=== PATIENT | male | born 1940 | race Caucasian/White ===

== ENCOUNTER 2016-08-20 10:24 | Emergency (ER) | payer MEDICARE ==
[2016-08-20] MEDS ORDERED: 0.9 % SODIUM CHLORIDE 1,000 ML BAG IV ONE (10:42)
--- NOTE | 2016-08-20 10:43 | Emergency Department Record ---
History of Present Illness - General Chief complaint: GI Bleed Stated complaint: BLOODY STOOL Time Seen by Provider: 08/20/16 10:37 Source: Patient, Family Mode of Arrival: Ambulatory Limitations: No limitations - History of Present Illness Initial comments: 75 yo male presents with a few days of blood in the stools. He has a past medical history of GI bleeding. On 04/15/16 he had an EGD that demonstrated antral gastritis. On 02/27/15 he had a colonoscopy that demonstrated sigmoid diverticulosis. (Dr Stephenson). He has a cardiac stent and takes Effient. The stools since Tuesday or Tuesday have been dark. No bright red blood. No fevers. No diarrhea. He has 3-5 stools per day. No nausea or vomiting. He has unchanged chronic abdominal pain for 9 years. He had recent urostomy surgery and denies any concerns or complications from that. MD complaint: Melena Onset/Timin -: Days(s) Consistency: Intermittent Improves with: None Worsens with: None Context: History of GI bleed, Blood thinners Associated Symptoms: Denies other symptoms Treatments Prior to Arrival: None - Related Data Home Medications Medication Instructions Recorded Confirmed Last Taken Atorvastatin Calcium [Lipitor] 40 mg PO DAILY 04/28/14 08/20/16 04/29/14 Carvedilol [Coreg] 3.125 mg PO BID 04/28/14 08/20/16 04/29/14 Ezetimibe [Zetia] 10 mg PO DAILY 04/28/14 08/20/16 04/29/14 Insulin Detemir [Levemir] 7 unit SQ QHS 04/28/14 08/20/16 04/28/14 Insulin Detemir [Levemir] 27 unit SQ DAILY 04/28/14 08/20/16 04/28/14 Linagliptin [Tradjenta] 5 mg PO DAILY 04/28/14 08/20/16 04/29/14 Pioglitazone HCl [Actos] 30 mg PO DAILY 04/28/14 08/20/16 04/29/14 Duloxetine HCl [Cymbalta] 30 mg PO DAILY 04/30/14 08/20/16 04/29/14 Aspirin [Aspirin EC] 81 mg PO DAILY 08/20/16 08/20/16 Unknown Bifidobacterium Infantis [Align] 4 mg PO DAILY 08/20/16 08/20/16 Unknown Cholecalciferol (Vitamin D3) 10,000 unit PO WEEKLY 08/20/16 08/20/16 Unknown [Vitamin D3] L.acidoph & KrystalB.lactis 1 each PO BID 08/20/16 08/20/16 Unknown [Probiotic] Lansoprazole [Prevacid] 30 mg PO DAILY 08/20/16 08/20/16 Unknown Prasugrel HCl [Effient] 10 mg PO DAILY 08/20/16 08/20/16 Unknown Previous Rx's Medication Instructions Recorded Hydrocodone/Acetaminophen [[place] 1 each PO Q6HR PRN #20 tablet 04/30/14 7.5-325 Tablet] Allergies Allergy/AdvReac Type Severity Reaction Status Date / Time ioversol [IOVERSOL] Allergy Unknown GIVE Verified 04/30/14 04:26 PRE-TREATMENT hydromorphone HCl Allergy VOMITING Verified 08/20/16 10:37 [From Dilaudid] Iodinated Contrast Media - Allergy HIVES Verified 04/28/14 03:50 Oral and [Iodinated Contrast Media - IV Dye] morphine Allergy ALTERED Verified 04/28/14 03:50 MENTAL STATUS Travel Screening - Travel/Exposure Within Last 30 Days Have you traveled within the last 30 days?: No - Travel Symptoms Symptom Screening: None Review of Systems Constitutional: Denies: Chills, Fever, Malaise, Weakness Eyes: Denies: Eye discharge ENT: Denies: Congestion, Ear pain, Epistaxis, Throat pain Respiratory: Denies: Cough Cardiovascular: Denies: Chest pain, Palpitations, Syncope Endocrine: Denies: Fatigue Gastrointestinal: Reports: Abdominal pain, Melena. Denies: Constipation, Diarrhea, Hematemesis, Hematochezia, Nausea, Vomiting Genitourinary: Denies: Dysuria, Frequency, Hematuria Musculoskeletal: Denies: Arthralgia, Back pain, Myalgia Skin: Denies: Bruising, Change in color, Rash Neurological: Denies: Confusion, Headache Psychiatric: Denies: Anxiety Hematological/Lymphatic: Denies: Blood Clots, Easy bleeding, Easy bruising, Swollen glands Past Medical History - SOCIAL HISTORY Smoking Status: Former smoker Alcohol Use: None Drug Use: None - RESPIRATORY Hx Respiratory Disorders: Yes Hx Pneumonia: Yes (2012) - CARDIOVASCULAR Hx Cardio Disorders: Yes Hx CHF: Yes Hx Hypertension: Yes Hx Irregular Heartbeat: Yes (hx of afib 2011) Comment:: high cholesterol - NEURO Hx Neuro Disorders: No - GI Hx GI Disorders: Yes Hx Abdominal Pain: Yes (chronic unexplained abdominal) Hx Wt Loss/Wt Gain: Yes (down 20 lbs since 04/2014) Comment:: h pylori - Hx Genitourinary Disorders: Yes Hx Bladder Problem: Yes (bladder cancer, urostomy) Hx Prostate Problems: Yes (removed 2006) Hx UTI: Yes (hx) - ENDOCRINE Hx Endocrine Disorders: Yes Hx Diabetes: Yes - MUSCULOSKELETAL Hx Musculoskeletal Disorders: Yes - PSYCH Hx Psych Problems: Yes Hx Anxiety: Yes Hx Depression: Yes - HEMATOLOGY/ONCOLOGY Hx Hematology/Oncology Disorders: Yes Hx Cancer: Yes (bladder 2006) Hx Chemotherapy: No Hx Radiation Therapy: No Family Medical History Any Significant Family History?: Yes Hx Cancer: Father *Cancer Comment: melanoma Hx Diabetes: Mother Hx Heart Disease: Father, Mother Hx HTN: Father, Mother Hx Stroke: Father, Mother Physical Exam - General General Appearance: Alert, Oriented x3, Cooperative, No acute distress Limitations: No limitations - Head Head exam: Normal inspection - Eye Eye exam: Normal appearance, PERRL. negative: Conjunctival injection, Periorbital swelling - ENT ENT exam: Normal exam Ear exam: Normal external inspection Mouth exam: Normal external inspection Teeth exam: Normal inspection - Neck Neck exam: Normal inspection, Full ROM. negative: Tenderness - Respiratory Respiratory exam: Normal lung sounds bilaterally. negative: Respiratory distress - Cardiovascular Cardiovascular Exam: Regular rate, Normal rhythm, Normal heart sounds - GI/Abdominal GI/Abdominal exam: Soft. negative: Distended, Guarding, Rebound, Tenderness - Rectal Rectal exam: Black stool, Heme (+) stool, Normal inspection. negative: Bloody stool, Decreased rectal tone, Fecal impaction, Hemorrhoids - exam: Deferred - Extremities Extremities exam: Normal inspection, Full ROM, Normal capillary refill. negative: Tenderness - Back Back exam: Reports: Normal inspection, Full ROM. Denies: Muscle spasm, Rash noted, Tenderness - Neurological Neurological exam: Alert, Normal gait, Oriented X3 - Psychiatric Psychiatric exam: Normal affect, Normal mood - Skin Skin exam: Dry, Intact, Normal color, Warm. negative: Cyanosis, Diaphoretic, Erythema, Mottled Course Vital Signs 08/20/16 10:29 Temperature 98.7 F Pulse Rate 117 H Respiratory 20 Rate Blood Pressure 129/94 Pulse Ox 97 - Reevaluation(s) Reevaluation #1: The labs were reviewed Hgb is 13.3 improved from prior hgb of 12.2 in January of 2016. CR is 1.3 improved from the prior of 1.4 08/20/16 11:45 08/20/16 11:46 Reevaluation #2: HR 95. Patient formed of the results. 08/20/16 11:47 Reevaluation #3: I SW Dr Gonzales. We discussed the symptoms, examination and results. The patient is stable, no signs of active significant bleeding with an improved hgb. Dr Gonzales recommends holding the aspirin at this time. The patient will be recheck in the office or ED in the next 2-3 days with CBC. If the stools increase the patient is to return immediately to the ER over the weekend. 08/20/16 12:00 Medical Decision Making - Lab Data Result diagrams: 08/20/16 11:05 08/20/16 11:05 Disposition Disposition: Discharge Clinical Impression: Melena Disposition: Home, Self-Care Condition: (1) Good Instructions: Gastrointestinal Bleeding (ED) Additional Instructions: Hold the aspirin until directed by Dr Gonzales Return over the weekend if you have any increase in stools or any red blood Follow up on Tuesday to recheck the blood count or return to the ER for a recheck. Forms: Patient Portal Access Time of Disposition: 12:04
[2016-08-20 11:15] LABS: BASO % 1.5 % (0-6); EOS % 2.3 % (0-6); GRAN % 67.5 % (47-80); HEMATOCRIT 41.3 % (42.0-52.0); HEMOGLOBIN 13.3 gm/dl (14.0-18.0); LYMPH % 21.8 % (16-45); MEAN CELL VOLUME 89.2 fl (81-97); MEAN CORPUSCULAR HEMOGLOBIN 28.7 pg (27-33); MEAN CORPUSCULAR HGB CONC 32.2 g/dl (32-36); MEAN PLATELET VOLUME 10.3 fl (7.4-10.4); MONO % 6.9 % (0-9); PLATELET COUNT 305 K/uL (130-400); RED BLOOD COUNT 4.63 M/uL (4.40-5.70); RED CELL DISTRIBUTION WIDTH 14.2 % (11.5-14.5); WHITE BLOOD COUNT W/O DIFF 10.4 K/uL (4.2-12.2)
[2016-08-20 11:29] LABS: ALBUMIN 4.4 gm/dL (3.5-5.0); ANION GAP 10.3 (7-16); BILIRUBIN,TOTAL 0.62 mg/dL (0.2-1.3); CARBON DIOXIDE 27.7 mmol/L (22-30); CREATININE 1.3 mg/dL (0.66-1.25); INR 0.98; PARTIAL THROMBOPLASTIN TIME 23.3 SECONDS (24.5-39.1); PROTHROMBIN TIME (PATIENT) 11.1 SECONDS (9.5-12.1); TOTAL PROTEIN 7.2 gm/dL (6.3-8.2)
[2016-08-20 11:59] LABS: ABO GROUP A; ANTIBODY SCREEN NEGATIVE (NEGATIVE); RH TYPE POSITIVE
== END 2016-08-20 12:26 | disposition home or self-care (01) ==
LOC: ER 10:24
DX: K92.1 Melena (principal)
CPT/HCPCS: 80048; 80076; 85025; 85610; 85730; 86850; 86900; 86901; 96360; 99284; J7030

== ENCOUNTER 2017-11-05 10:37 | Emergency (ER) | payer MEDICARE ==
[2017-11-05 11:25] LABS: URINE APPEARANCE CLOUDY; URINE BILIRUBIN NEGATIVE (NEGATIVE); URINE BLOOD LARGE (NEGATIVE); URINE COLOR YELLOW; URINE GLUCOSE (UA) NEGATIVE (NEGATIVE); URINE KETONE NEGATIVE (NEGATIVE); URINE LEUKOCYTE ESTERASE LARGE (NEGATIVE); URINE NITRITE POSITIVE (NEGATIVE); URINE UROBILINOGEN 0.2 E.U./dL (0.20 - 1.00)
[2017-11-05 11:26] LABS: BASO % 0.7 % (0-6); EOS % 1.5 % (0-6); GRAN % 70.2 % (47-80); HEMATOCRIT 37.7 % (42.0-52.0); HEMOGLOBIN 12.1 gm/dl (14.0-18.0); MEAN CELL VOLUME 91.7 fl (81-97); MEAN CORPUSCULAR HEMOGLOBIN 29.4 pg (27-33); MEAN CORPUSCULAR HGB CONC 32.1 g/dl (32-36); MONO % 11.6 % (0-9); PLATELET COUNT 422 K/uL (130-400); RED BLOOD COUNT 4.11 M/uL (4.40-5.70); RED CELL DISTRIBUTION WIDTH 14.8 % (11.5-14.5); WHITE BLOOD COUNT W/O DIFF 12.7 K/uL (4.2-12.2)
[2017-11-05 11:31] LABS: URINE RBC >50 (NONE SEEN)
--- NOTE | 2017-11-05 11:31 | Emergency Department Record ---
History of Present Illness - General Chief Complaint: Fever Stated Complaint: 102 FEVER JUST HAD SURGERY Time Seen by Provider: 11/05/17 10:59 Source: Patient, Family Mode of Arrival: Ambulatory Limitations: No limitations - History of Present Illness Initial Comments: pt had surgery 3 wks ago to have a urostomy tube replaced and smbowell resection. this morning he had a temp. and noted that he had yellow drainage coming from the drainage tube site. MD Complaint: Fever Onset/Timin -: Hour(s) Maximum Temperature: 102 F Context: Recent procedure Associated Symptoms: Chills Treatments Prior to Arrival: Acetaminophen - Related Data Home Medications Medication Instructions Recorded Confirmed Last Taken Amlodipine Besylate [Norvasc] 5 mg PO DAILY 11/05/17 11/05/17 11/04/17 Nitrofurantoin Macrocrystal 25 mg PO QHS 11/05/17 11/05/17 11/04/17 [Nitrofurantoin] Sotalol HCl [Sotalol] 80 mg PO 11/05/17 11/05/17 11/04/17 Allergies Allergy/AdvReac Type Severity Reaction Status Date / Time ioversol [IOVERSOL] Allergy Unknown GIVE Verified 11/05/17 10:52 PRE-TREATMENT hydromorphone HCl Allergy VOMITING Verified 11/05/17 10:52 [From Dilaudid] Iodinated Contrast- Oral and Allergy HIVES Verified 11/05/17 10:52 IV Dye [Iodinated Contrast Media - IV Dye] morphine Allergy ALTERED Verified 11/05/17 10:52 MENTAL STATUS Travel Screening - Travel/Exposure Within Last 30 Days Have you traveled within the last 30 days?: No - Travel/Exposure Within Last Year Have you traveled outside the [place] in the last year?: No - Additonal Travel Details Have you been exposed to anyone with a communicable illness?: No - Travel Symptoms Symptom Screening: None Review of Systems Reviewed: No additional complaints except as noted below Constitutional: Reports: As per HPI. Denies: Chills, Fever, Malaise, Night sweats, Weakness, Weight change Eyes: Reports: As per HPI. Denies: Eye discharge, Eye pain, Photophobia, Vision change ENT: Reports: As per HPI. Denies: Congestion, Dental pain, Ear pain, Epistaxis , Hearing loss, Throat pain Respiratory: Reports: As per HPI. Denies: Cough, Dyspnea, Hemoptysis, Stridor, Wheezes Cardiovascular: Reports: As per HPI. Denies: Arrhythmia, Chest pain, Dyspnea on exertion, Edema, Murmurs, Orthopnea, Palpitations, Paroxysmal nocturnal dyspnea, Rheumatic Fever, Syncope Endocrine: Reports: As per HPI. Denies: Fatigue, Heat or cold intolerance, Polydipsia, Polyuria Gastrointestinal: Reports: As per HPI. Denies: Abdominal pain, Constipation, Diarrhea, Hematemesis, Hematochezia, Melena, Nausea, Vomiting Genitourinary: Reports: As per HPI. Denies: Dysuria, Frequency, Hematuria, Incontinence, Retention, Testicular pain, Testicular mass, Urgency Musculoskeletal: Reports: As per HPI. Denies: Arthralgia, Back pain, Gout, Joint swelling, Myalgia, Neck pain Skin: Reports: As per HPI. Denies: Bruising, Change in color, Change in hair/ nails, Lesions, Pruritus, Rash Neurological: Reports: As per HPI. Denies: Abnormal gait, Confusion, Headache, Numbness, Paresthesias, Seizure, Tingling, Tremors, Vertigo, Weakness Psychiatric: Reports: As per HPI. Denies: Anxiety, Auditory hallucinations, Depression, Homicidal thoughts, Suicidal thoughts, Visual hallucinations Hematological/Lymphatic: Reports: As per HPI. Denies: Anemia, Blood Clots, Easy bleeding, Easy bruising, Swollen glands Past Medical History - SOCIAL HISTORY Smoking Status: Former smoker Alcohol Use: None Drug Use: None - RESPIRATORY Hx Respiratory Disorders: Yes Hx Pneumonia: Yes (hx 2012) - CARDIOVASCULAR Hx Cardio Disorders: Yes Hx CHF: Yes Hx Hypertension: Yes Hx Irregular Heartbeat: Yes (hx of afib 2011) Comment:: high cholesterol - NEURO Hx Neuro Disorders: No - GI Hx GI Disorders: Yes Hx Abdominal Pain: Yes (chronic unexplained abdominal) Hx Wt Loss/Wt Gain: Yes (down 20 lbs since 04/2014) Comment:: h pylori - Hx Genitourinary Disorders: Yes Hx Bladder Problem: Yes (bladder cancer, urostomy) Hx Prostate Problems: Yes (removed 2006) Hx UTI: Yes (hx) - ENDOCRINE Hx Endocrine Disorders: Yes Hx Diabetes: Yes - MUSCULOSKELETAL Hx Musculoskeletal Disorders: Yes - PSYCH Hx Psych Problems: Yes Hx Anxiety: Yes Hx Depression: Yes - HEMATOLOGY/ONCOLOGY Hx Hematology/Oncology Disorders: Yes Hx Cancer: Yes (bladder 2007) Hx Chemotherapy: No Hx Radiation Therapy: No Family Medical History Any Significant Family History?: No Hx Cancer: Father *Cancer Comment: melanoma Hx Diabetes: Mother Hx Heart Disease: Father, Mother Hx HTN: Father, Mother Hx Stroke: Father, Mother Physical Exam - General General Appearance: Alert, Oriented x3, Cooperative, Mild distress - Head Head exam: Normal inspection - Eye Eye exam: Normal appearance, PERRL, EOMI Pupils: Normal accommodation - ENT ENT exam: Normal exam, Mucous membranes moist, Normal external ear exam, Normal orophraynx Ear exam: Normal external inspection. negative: External canal tenderness Nasal Exam: Normal inspection. negative: Discharge, Sinus tenderness Mouth exam: Normal external inspection, Tongue normal Teeth exam: Normal inspection. negative: Dental caries Throat exam: Normal inspection. negative: Tonsillar erythema, Tonsillar exudate - Neck Neck exam: Normal inspection, Full ROM. negative: Tenderness - Respiratory Respiratory exam: Normal lung sounds bilaterally. negative: Respiratory distress - Cardiovascular Cardiovascular Exam: Regular rate, Normal rhythm, Normal heart sounds - GI/Abdominal GI/Abdominal exam: Soft, Normal bowel sounds, Tenderness, Other (well healing incision w no erythema or evidence of infection) - Rectal Rectal exam: Deferred - exam: Deferred - Extremities Extremities exam: Normal inspection, Full ROM, Normal capillary refill. negative: Tenderness - Back Back exam: Reports: Normal inspection, Full ROM. Denies: Muscle spasm, Rash noted, Tenderness - Neurological Neurological exam: Alert, CN II-XII intact, Normal gait, Oriented X3 - Psychiatric Psychiatric exam: Normal affect, Normal mood - Skin Skin exam: Dry, Intact, Normal color, Warm Course Vital Signs 11/05/17 10:40 Temperature 98.9 F Pulse Rate 84 Respiratory 16 Rate Blood Pressure 113/64 Pulse Ox 96 - Reevaluation(s) Reevaluation #1: 11/05/17 14:15 pt did well entire stay Medical Decision Making - Lab Data Result diagrams: 11/05/17 11:20 11/05/17 11:20 Disposition Disposition: Transfer Clinical Impression: Pyelonephritis Disposition: Acute Care Hospital Transfer Transfer To: of Reason For Transfer: pts urologist Accepting Physician: yomi baugh, Time Discussed w/Accepting Physician: 14:10 Condition: (1) Good Forms: Patient Portal Access Quality - Quality Measures Quality Measures: N/A - Blood Pressure Screening Does Patient Have Any of the Following: No Blood Pressure Classification: Normal BP Reading Systolic Measurement: 113 Diastolic Measurement: 64 Screening for High Blood Pressure: < Normal BP, F/U Not Required > [G8725]
[2017-11-05 11:32] LABS: URINE BACTERIA 2+; URINE EPITHELIAL CELLS NONE SEEN (FEW)
[2017-11-05 11:40] LABS: BLOOD UREA NITROGEN 14 mg/dL (8-23); EST GLOMERULAR FILTRATION RATE > 60 mL/min; TOTAL PROTEIN 6.5 g/dL (6.6-8.7)
[2017-11-05 11:42] LABS: GLUCOSE,RANDOM 138 mg/dL (74-109)
[2017-11-05 11:45] LABS: ALBUMIN 3.2 g/dL (4.0-5.0); ALKALINE PHOSPHATASE 303 U/L (40-129); ALT/SGPT 32 U/L (<41); AST/SGOT 40 U/L (10.0-50.0)
[2017-11-05 12:00] LABS: ERYTHROCYTE SEDIMENTATION RATE 55 mm/hr (0-20)
[2017-11-05] MEDS: PIPERACILLIN SODIUM/TAZOBACTAM 3.375 GM in 0.9 % SODIUM CHLORIDE 100ML 100 ML IVPB ONE (14:00)
--- NOTE | 2017-11-05 22:57 | CT SCAN REPORT ---
EXAM: CT SCAN ABDOMEN/PELVIS WO CONTRAST HISTORY: FEVER. RECENT OSTOMY SURGERY. PARTIAL SMALL BOWEL REMOVAL. TECHNIQUE: Routine noncontrast CT images of the abdomen and pelvis were obtained. FINDINGS: Lung bases demonstrated bibasilar scarring and atelectasis. Liver, gallbladder, pancreas, spleen, and adrenals have a normal noncontrast appearance. There are splenic granulomatous calcifications. Bilateral ureteral stents are in place, which extend into an ileal conduit bladder. The proximal left ureteral stent terminates in the proximal left ureter rather than in the renal pelvis. There is mild to moderate hydronephrosis. There is colonic diverticulosis without evidence for diverticulitis. Bowel is normal in caliber. Bladder is surgically absent. There is mild ascites. Previous posterior lumbar interbody fusion L3-4. Atherosclerotic calcifications. 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 No abdominal or pelvic lymphadenopathy. Postsurgical changes in the anterior abdominal wall. [place] are noted. IMPRESSION: 1. THERE HAS BEEN CYSTECTOMY AND ILEAL CONDUIT BLADDER CREATION. BILATERAL URETERAL STENTS ARE PRESENT EXTENDING INTO THE ILEAL CONDUIT. MILD TO MODERATE BILATERAL HYDRONEPHROSIS. 2. MILD NONSPECIFIC FREE FLUID. 3. COLONIC DIVERTICULOSIS. JOB NUMBER: [id number] [facility]
--- NOTE | 2017-11-05 23:01 | RADIOLOGY REPORT ---
EXAM: CHEST 2 VIEWS HISTORY: FEVER. PREVIOUS SURGERY. TECHNIQUE: Chest, two view. COMPARISON: None. FINDINGS: The heart is not enlarged. Aortic atherosclerosis and tortuosity. Interstitial prominence within the lungs with right apical pleural thickening. subtle streaky densities within the right lung base, which could relate to atelectasis or developing infiltrate. No focal consolidation or pleural effusion. IMPRESSION: STREAKY DENSITIES RIGHT LUNG BASE, WHICH COULD RELATE TO ATELECTASIS OR DEVELOPING INFILTRATE. JOB NUMBER: [id number] [facility]
== END 2017-11-05 14:36 | disposition short-term general hospital (02) ==
LOC: ER 10:37
DX: N10 Acute pyelonephritis (principal); R50.81 Fever presenting with conditions classified elsewhere; E11.9 Type 2 diabetes mellitus without complications; I10 Essential (primary) hypertension; I50.9 Heart failure, unspecified; Z98.890 Other specified postprocedural states; Z87.891 Personal history of nicotine dependence
CPT/HCPCS: 71046; 74176; 80053; 81001; 85025; 85651; 96374; 99285; J2543

== ENCOUNTER 2018-02-25 22:18 | Emergency (ER) | payer MEDICARE ==
[2018-02-25] MEDS ORDERED: METHYLPREDNISOLONE PF 125MG/VIAL IVP ONE (22:29)
[2018-02-25] MEDS ORDERED: IPRATROPIUM/ALBUTEROL (0.5MG/3MG) NEB INH ONE (22:29)
[2018-02-25] MEDS ORDERED: ASPIRIN 81 MG CHEWABLE TABLET PO ONE (22:31)
--- NOTE | 2018-02-25 22:38 | Emergency Department Record ---
History of Present Illness - General Chief Complaint: Shortness of breath Stated Complaint: INOCENTE Time Seen by Provider: 02/25/18 22:27 Source: Patient, RN notes reviewed Mode of Arrival: Wheelchair - History of Present Illness Initial Comments: patient presented extremely SOB and hypoxic with pulse ox of 66% and wheezing in all lung harry and grunting respirations and pale and his has a history of COPD and stopped smoking 20 years ago and history of cardiomyopathy and he has a watchman. and on sotolol. states he has had atrial fibrillation and currently in NSR. Patient denies chest pain and he has been coughing for a week but he got much worse tonight. Patient denies home oxygen use. Special Education Associate is Dr Aleksandar MADERA. Patient has ileostomy for 20 years for bladder cancer and in October 2017 he had a revision of his ileostomy at [facility] with bowel surgery with adhesions. PMH CAD with two stents at [facility] two years ago. DM on insulin Treatments Prior to Arrival: None - Related Data Home Oxygen Therapy: No Home Medications Medication Instructions Recorded Confirmed Last Taken Albuterol Sulfate [Ventolin Hfa] 2 puff INH Q4H 02/25/18 02/25/18 Unknown Azelastine HCl 1 spray INH DAILY 02/25/18 02/25/18 Unknown Cephalexin 250 mg PO Q6H 02/25/18 02/25/18 Unknown Trazodone HCl 50 mg PO QHS 02/25/18 02/25/18 Unknown Allergies Allergy/AdvReac Type Severity Reaction Status Date / Time ioversol [IOVERSOL] Allergy Unknown GIVE Verified 11/05/17 10:52 PRE-TREATMENT hydromorphone HCl Allergy VOMITING Verified 11/05/17 10:52 [From Dilaudid] Iodinated Contrast- Oral and Allergy HIVES Verified 11/05/17 10:52 IV Dye [Iodinated Contrast Media - IV Dye] morphine Allergy ALTERED Verified 11/05/17 10:52 MENTAL STATUS Travel Screening - Travel/Exposure Within Last 30 Days Have you traveled within the last 30 days?: No - Travel Symptoms Symptom Screening: None Review of Systems Reviewed: No additional complaints except as noted below Constitutional: Reports: As per HPI. Denies: Chills, Fever, Malaise, Night sweats, Weakness, Weight change Eyes: Reports: As per HPI. Denies: Eye discharge, Eye pain, Photophobia, Vision change ENT: Reports: As per HPI. Denies: Congestion, Dental pain, Ear pain, Epistaxis , Hearing loss, Throat pain Respiratory: Reports: As per HPI, Cough, Dyspnea, Wheezes. Denies: Hemoptysis, Stridor Cardiovascular: Reports: As per HPI. Denies: Arrhythmia, Chest pain, Dyspnea on exertion, Edema, Murmurs, Orthopnea, Palpitations, Paroxysmal nocturnal dyspnea, Rheumatic Fever, Syncope Endocrine: Reports: As per HPI. Denies: Fatigue, Heat or cold intolerance, Polydipsia, Polyuria Gastrointestinal: Reports: As per HPI. Denies: Abdominal pain, Constipation, Diarrhea, Hematemesis, Hematochezia, Melena, Nausea, Vomiting Genitourinary: Reports: As per HPI. Denies: Dysuria, Frequency, Hematuria, Incontinence, Retention, Testicular pain, Testicular mass, Urgency Musculoskeletal: Reports: As per HPI. Denies: Arthralgia, Back pain, Gout, Joint swelling, Myalgia, Neck pain Skin: Reports: As per HPI. Denies: Bruising, Change in color, Change in hair/ nails, Lesions, Pruritus, Rash Neurological: Reports: As per HPI. Denies: Abnormal gait, Confusion, Headache, Numbness, Paresthesias, Seizure, Tingling, Tremors, Vertigo, Weakness Psychiatric: Reports: As per HPI. Denies: Anxiety, Auditory hallucinations, Depression, Homicidal thoughts, Suicidal thoughts, Visual hallucinations Hematological/Lymphatic: Reports: As per HPI. Denies: Anemia, Blood Clots, Easy bleeding, Easy bruising, Swollen glands Past Medical History - SOCIAL HISTORY Smoking Status: Former smoker Alcohol Use: None Drug Use: None - RESPIRATORY Hx Respiratory Disorders: Yes Hx Pneumonia: Yes (hx 2012) - CARDIOVASCULAR Hx Cardio Disorders: Yes Hx CHF: Yes Hx Hypertension: Yes Hx Irregular Heartbeat: Yes (hx of afib 2011) Comment:: high cholesterol - NEURO Hx Neuro Disorders: No - GI Hx GI Disorders: Yes Hx Abdominal Pain: Yes (chronic unexplained abdominal) Hx Wt Loss/Wt Gain: Yes (down 20 lbs since 04/2014) Comment:: h pylori - Hx Genitourinary Disorders: Yes Hx Bladder Problem: Yes (bladder cancer, urostomy) Hx Prostate Problems: Yes (removed 2006) Hx UTI: Yes (hx) - ENDOCRINE Hx Endocrine Disorders: Yes Hx Diabetes: Yes - MUSCULOSKELETAL Hx Musculoskeletal Disorders: Yes - PSYCH Hx Psych Problems: Yes Hx Anxiety: Yes Hx Depression: Yes - HEMATOLOGY/ONCOLOGY Hx Hematology/Oncology Disorders: Yes Hx Cancer: Yes (bladder 2007) Hx Chemotherapy: No Hx Radiation Therapy: No Family Medical History Any Significant Family History?: Yes Hx Cancer: Father *Cancer Comment: melanoma Hx Diabetes: Mother Hx Heart Disease: Father, Mother Hx HTN: Father, Mother Hx Stroke: Father, Mother Physical Exam - General General Appearance: Oriented x3, Severe distress (tetracting respirations and paradoxic) - Head Head exam: Normal inspection - Eye Eye exam: Normal appearance, PERRL Pupils: Normal accommodation - ENT ENT exam: Normal exam, Mucous membranes moist, Normal external ear exam, Normal orophraynx, TM's normal bilaterally Ear exam: Normal external inspection. negative: External canal tenderness Nasal Exam: Normal inspection. negative: Discharge, Sinus tenderness Mouth exam: Normal external inspection, Tongue normal Teeth exam: Normal inspection. negative: Dental caries Throat exam: Normal inspection. negative: Tonsillar erythema, Tonsillar exudate - Neck Neck exam: Normal inspection, Full ROM. negative: Tenderness - Respiratory Respiratory exam: Accessory muscle use, Decreased breath sounds, Wheezes. negative: Respiratory distress - Cardiovascular Cardiovascular Exam: Regular rate, Normal rhythm, Normal heart sounds - GI/Abdominal GI/Abdominal exam: Soft, Normal bowel sounds. negative: Tenderness - Rectal Rectal exam: Deferred - exam: Deferred - Extremities Extremities exam: Normal inspection, Full ROM, Normal capillary refill. negative: Tenderness - Back Back exam: Reports: Normal inspection, Full ROM. Denies: Muscle spasm, Rash noted, Tenderness - Neurological Neurological exam: Alert, Normal gait, Oriented X3, Reflexes normal - Psychiatric Psychiatric exam: Normal affect, Normal mood - Skin Skin exam: Dry, Intact, Normal color, Warm Course Vital Signs 02/25/18 02/25/18 22:21 22:29 Temperature 97.7 F Pulse Rate 130 H Pulse Rate [ 121 H Assistant Statistician ] Respiratory 30 H Rate Blood Pressure 245/148 Blood Pressure 217/125 [Left Arm] Pulse Ox 100 96 - Reevaluation(s) Reevaluation #1: Discussed case with Dr. Carty(Hospitalist) at [facility] and they excepted the patient. 02/26/18 00:36 02/26/18 00:51 Reevaluation #2: patient was on Bipap initially for 2 hours and he is doing much better and swithched him over to nasal canula 3 liters per minute and he is maintaining his pulse oxygen at 97 % and he diuresed 300 ml. 02/26/18 00:37 02/26/18 00:38 Reevaluation #3: abg PH 7.55, Po2 97, PCO2 26.5 on bipap room air oxygen. Patient recieved duoneb and albuterol2.5 mg initially. 02/26/18 00:42 02/26/18 00:43 Reevaluation #4: patient is allergic to contrast so didn't do the CTA of chest 02/26/18 00:45 Medical Decision Making - Data Complexity MDM Data: Labs Ordered and/or Reviewed, X-Ray Ordered and/or Reviewed (chest xray pulmonary vascular congestion with infiltrate right lower lobe) - Lab Data Result diagrams: 02/25/18 22:20 02/25/18 22:20 Disposition Clinical Impression: Elevated d-dimer, History of bladder cancer, Elevated brain natriuretic peptide (BNP) level Respiratory failure Qualifiers: Chronicity: acute Respiratory failure complication: hypoxia Qualified Code(s): J96.01 - Acute respiratory failure with hypoxia CHF (congestive heart failure) Qualifiers: Heart failure type: systolic Heart failure chronicity: acute Qualified Code(s) : I50.21 - Acute systolic (congestive) heart failure CAD (coronary artery disease) Qualifiers: Coronary Disease-Associated Artery/Lesion type: [place] artery [place] vs. 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
[2018-02-25] MEDS ORDERED: ALBUTEROL SULFATE (0.083%) 2.5 MG/3 ML NEB INH ONE (22:39)
[2018-02-25 22:41] LABS: BASO % 0.9 % (0-6); EOS % 2.8 % (0-6); GRAN % 40.1 % (47-80); HEMATOCRIT 48.4 % (42.0-52.0); HEMOGLOBIN 15.6 gm/dl (14.0-18.0); LYMPH % 47.6 % (16-45); MEAN CELL VOLUME 92.7 fl (81-97); MEAN CORPUSCULAR HEMOGLOBIN 29.9 pg (27-33); MEAN CORPUSCULAR HGB CONC 32.2 g/dl (32-36); MONO % 8.6 % (0-9); PLATELET COUNT 246 K/uL (130-400); RED BLOOD COUNT 5.22 M/uL (4.40-5.70); RED CELL DISTRIBUTION WIDTH 15.4 % (11.5-14.5); WHITE BLOOD COUNT W/O DIFF 12.8 K/uL (4.2-12.2)
[2018-02-25 22:54] LABS: BLOOD UREA NITROGEN 19 mg/dL (8-23); CREATININE 1.1 mg/dL (0.7-1.2); EST GLOMERULAR FILTRATION RATE > 60 mL/min
[2018-02-25 22:57] LABS: GLUCOSE,RANDOM 174 mg/dL (74-109)
[2018-02-25] MEDS ORDERED: FUROSEMIDE IV 40MG/4ML VIAL IVP ONE (23:08)
[2018-02-25] MEDS ORDERED: CEFTRIAXONE SODIUM 1 GM in 0.9 % SODIUM CHLORIDE 100ML 100 ML IVPB ONE (23:37)
[2018-02-25 23:45] LABS: ARTERIAL BLD GAS O2 SATURATION 98.8 % (95-98); ARTERIAL BLOOD GAS BASE EXCESS 2.3 mmol/L (-2 - 3); ARTERIAL BLOOD GAS HCO3 23.4 mmol/L (18-23); ARTERIAL BLOOD GAS PCO2 26.5 mmHg (35-48); ARTERIAL BLOOD GAS pH 7.55 (7.35-7.45); CARBOXYHEMOGLOBIN 1.3 % (0-1.5); METHEMOGLOBIN 0.5 % (0.0-1.5); TOTAL HEMOGLOBIN 12.4 g/dl (14-18)
[2018-02-25 23:47] LABS: ALLEN TEST PASS
--- NOTE | 2018-02-28 06:59 | RADIOLOGY REPORT ---
EXAM: CHEST, SINGLE AP PORTABLE VIEW HISTORY: SHORTNESS OF BREATH. TECHNIQUE: A single AP portable view of the chest was provided along the comparison study dated 11/05/17. FINDINGS: The cardiomediastinal silhouette is within normal limits for size and contour. Tortuosity of the thoracic aorta is noted. Diffuse interstitial infiltrates are identified bilaterally. Right lower lobe passive subsegmental atelectasis and/or infiltrate with pleural effusion is noted. Small left sided pleural effusion is noted. These findings suggest pneumonia. No pneumothorax is noted. IMPRESSION: BILATERAL INFILTRATES ARE NOTED DISCUSSED ABOVE SUGGESTING PNEUMONIA. FOLLOW -UP PA AND LATERAL VIEWS OF THE CHEST CAN BE OBTAINED UNTIL RESOLUTION OF FINDINGS. JOB NUMBER: [id number] [facility]
== END 2018-02-26 01:45 | disposition short-term general hospital (02) ==
LOC: ER 22:18
DX: J96.01 Acute respiratory failure with hypoxia (principal); R79.89 Other specified abnormal findings of blood chemistry; I50.21 Acute systolic (congestive) heart failure; I25.10 Atherosclerotic heart disease of native coronary artery without angina pectoris; I48.91 Unspecified atrial fibrillation; E11.9 Type 2 diabetes mellitus without complications; I10 Essential (primary) hypertension; Z85.51 Personal history of malignant neoplasm of bladder; Z79.4 Long term (current) use of insulin; Z87.891 Personal history of nicotine dependence
CPT/HCPCS: 36600; 71045; 80048; 82375; 82803; 83880; 84484; 85025; 85379; 85730; 93005; 93010; 94640; 94660; 96365; 96375; 99285; J1940; J2930; J7613

== ENCOUNTER 2018-10-27 13:17 | Emergency (ER) | payer MEDICARE ==
--- NOTE | 2018-10-27 13:34 | Emergency Department Record ---
History of Present Illness - General Chief Complaint: Syncope Stated Complaint: SYNCOPY Time Seen by Provider: 10/27/18 13:29 Source: Patient, Family Mode of Arrival: Ambulatory Limitations: No limitations Travel/Exposure to [place] Within 21 Days of Symptoms: No - History of Present Illness Initial Comments: 77 yo male presents after a syncopal episode. He had a similar episode yesterday but he did not completely pass out. He was outside looking a baby deer and passed out in the yard. He denies any injury. He abruptly gets lightheaded and dizzy and passed out today briefly. Yesterday he changed positions and severe dizziness and nausea and thought he would pass out. Today he has remained nauseated and feels unsteady. He states he has a history of CAD with a stent. CHF. He has a Watchmen device implanted for clots. No chest pain. No headache. He had persistent nausea both days after the episodes. Dr Samuels is his fire observer. MD Complaint: Collapsed, Loss of consciousness -: Days(s) (2) Prodromal Symptoms: Lightheaded, Nausea/vomiting -: Minutes(s) Witnessed: Yes - by bystander Injuries Sustained Associated with Event: None Current Symptoms: Nausea Context: Other Treatments Prior to Arrival: None - Zohreh Coma Scale Eye Response: (4) Open spontaneously Motor Response: (6) Obeys commands Verbal Response: (5) Oriented Zohreh Total: 15 - Related Data Home Medications Medication Instructions Recorded Confirmed Last Taken Budesonide/Formoterol Fumarate 10.2 gm IH 10/27/18 10/27/18 [Symbicort 160-4.5 Mcg Inhaler] Furosemide [Lasix] 20 mg PO 10/27/18 10/27/18 Insulin Degludec [Tresiba] 100 unit SQ 10/27/18 10/27/18 Nitrofurantoin Macrocrystal 25 mg PO 10/27/18 10/27/18 [Nitrofurantoin] Potassium Chloride 10 meq PO 10/27/18 10/27/18 Allergies Allergy/AdvReac Type Severity Reaction Status Date / Time ioversol [IOVERSOL] Allergy Unknown GIVE Verified 11/05/17 10:52 PRE-TREATMENT hydromorphone HCl Allergy VOMITING Verified 11/05/17 10:52 [From Dilaudid] Iodinated Contrast- Oral and Allergy HIVES Verified 11/05/17 10:52 IV Dye [Iodinated Contrast Media - IV Dye] morphine Allergy ALTERED Verified 11/05/17 10:52 MENTAL STATUS Review of Systems Constitutional: Reports: Malaise, Weakness. Denies: Chills, Fever Eyes: Denies: Eye discharge ENT: Denies: Congestion, Throat pain Respiratory: Denies: Cough, Dyspnea, Hemoptysis, Stridor, Wheezes Cardiovascular: Reports: Palpitations, Syncope. Denies: Chest pain, Dyspnea on exertion, Edema Endocrine: Denies: Fatigue Gastrointestinal: Reports: Nausea. Denies: Abdominal pain, Diarrhea, Vomiting Musculoskeletal: Denies: Arthralgia, Back pain, Joint swelling, Myalgia Skin: Denies: Bruising, Change in color, Rash Neurological: Denies: Headache, Numbness, Vertigo, Weakness Psychiatric: Denies: Anxiety Hematological/Lymphatic: Denies: Easy bleeding, Easy bruising Past Medical History - SOCIAL HISTORY Smoking Status: Former smoker Drug Use: None - RESPIRATORY Hx Respiratory Disorders: Yes Hx Pneumonia: Yes (hx 2012) - CARDIOVASCULAR Hx Cardio Disorders: Yes Hx CHF: Yes Hx Hypertension: Yes Hx Irregular Heartbeat: Yes (hx of afib 2011) Comment:: high cholesterol - NEURO Hx Neuro Disorders: No - GI Hx GI Disorders: Yes Hx Abdominal Pain: Yes (chronic unexplained abdominal) Hx Wt Loss/Wt Gain: Yes (down 20 lbs since 04/2014) Comment:: h pylori - Hx Genitourinary Disorders: Yes Hx Bladder Problem: Yes (bladder cancer, urostomy) Hx Prostate Problems: Yes (removed 2006) Hx UTI: Yes (hx) - ENDOCRINE Hx Endocrine Disorders: Yes Hx Diabetes: Yes - MUSCULOSKELETAL Hx Musculoskeletal Disorders: Yes - PSYCH Hx Psych Problems: Yes Hx Anxiety: Yes Hx Depression: Yes - HEMATOLOGY/ONCOLOGY Hx Hematology/Oncology Disorders: Yes Hx Cancer: Yes (bladder 2006) Hx Chemotherapy: No Hx Radiation Therapy: No Family Medical History Hx Cancer: Father *Cancer Comment: melanoma Hx Diabetes: Mother Hx Heart Disease: Father, Mother Hx HTN: Father, Mother Hx Stroke: Father, Mother Physical Exam - General General Appearance: Alert, Oriented x3, Cooperative, No acute distress Limitations: No limitations - Head Head exam: Atraumatic, Normal inspection - Eye Eye exam: Normal appearance, PERRL. negative: Conjunctival injection, Scleral icterus - ENT ENT exam: Normal exam, Mucous membranes moist Ear exam: Normal external inspection Nasal Exam: Normal inspection Mouth exam: Normal external inspection - Neck Neck exam: Normal inspection - Respiratory Respiratory exam: Normal lung sounds bilaterally. negative: Respiratory distress - Cardiovascular Cardiovascular Exam: Regular rate, Normal rhythm, Normal heart sounds. negative: Irregular rhythm, Tachycardia Peripheral Pulses: 2+: Radial (R), Radial (L) - GI/Abdominal GI/Abdominal exam: Soft. negative: Tenderness - Rectal Rectal exam: Deferred - exam: Deferred - Extremities Extremities exam: Normal inspection - Back Back exam: Denies: CVA tenderness (R), CVA tenderness (L) - Neurological Neurological exam: Alert, Oriented X3. negative: Altered - Psychiatric Psychiatric exam: Normal affect, Normal mood - Skin Skin exam: Dry, Intact, Normal color, Warm Stroke Assessment - NIH Stroke Scale 1a. Level of Consciousness: (0) Alert 1b. LOC Questions: (0) Answers Correctly 1c. LOC Commands: (0) Performs Tasks Correctly 2. Best Gaze: (0) Normal 3. Visual: (0) No Visual Loss 4. Facial Palsy: (0) Normal Symmetrical Movement 5a. Motor Arm Left: (0) No Drift 5b. Motor Arm Right: (0) No Drift 6a. Motor Leg Left: (0) No Drift 6b. Motor Leg Right: (0) No Drift 7. Limb Ataxia: (0) Absent 8. Sensory: (0) Normal 9. Best Language: (0) No Aphasia 10. Dysarthria: (0) Normal 11. Extinction/Inattention: (0) No Abnormality NIH Stoke Scale Total: 0 Course - Reevaluation(s) Reevaluation #1: EKG #1 13:29 Rate 64 Intervals [place] [address] Normal Prior02/25/18 no significant changes 10/27/18 13:41 10/27/18 14:27 The CBC and CMP are normal The Troponin is normal 10/27/18 15:10 The radiologist called. The patient has a new R acute or subacute cerebellar hypodensity not seen on a study in 2017. The results were discussed with the patient. His specialist are at [facility]. [facility] was called. 10/27/18 15:22 I LIANA Shook. He accepts the patient for transfer to his service. Aspirin was recommended and given to the patient. Medical Decision Making - Lab Data Result diagrams: 10/27/18 13:30 10/27/18 13:30 Disposition Disposition: Transfer Clinical Impression: Syncope Transfer To: [facility] Reason For Transfer: New Cerebellar CT findings Accepting Physician: Bouchra Time Discussed w/Accepting Physician: 15:18 Condition: (2) Stable Forms: Patient Portal Access Time of Disposition: 15:18 Quality - Quality Measures Quality Measures: N/A - Blood Pressure Screening Does Patient Have Any of the Following: No Blood Pressure Classification: Pre-Hypertensive BP Reading Systolic Measurement: 172 Diastolic Measurement: 85 Screening for High Blood Pressure: < Pre-Hypertensive BP, F/U Documented > [G8950] Pre-Hypertensive Follow-up Interventions: Referral to alternative/primary care provider.
[2018-10-27 13:37] LABS: ABSOLUTE NEUTROPHIL COUNT 5.25; BASO % 0.9 % (0-6); EOS % 2.5 % (0-6); HEMOGLOBIN 13.8 gm/dl (14.0-18.0); LYMPH % 25.1 % (16-45); MEAN CELL VOLUME 90.7 fl (81-97); MEAN CORPUSCULAR HEMOGLOBIN 29.8 pg (27-33); MEAN CORPUSCULAR HGB CONC 32.9 g/dl (32-36); MEAN PLATELET VOLUME 10.1 fl (7.4-10.4); MONO % 9.5 % (0-9); PLATELET COUNT 199 K/uL (130-400); RED BLOOD COUNT 4.63 M/uL (4.40-5.70); RED CELL DISTRIBUTION WIDTH 15.5 % (11.5-14.5); WHITE BLOOD COUNT W/O DIFF 8.5 K/uL (4.2-12.2)
[2018-10-27 13:54] LABS: INR 1.1; PARTIAL THROMBOPLASTIN TIME 24.8 SECONDS (24.5-39.1); PROTHROMBIN TIME (PATIENT) 10.8 SECONDS (9.5-12.1)
[2018-10-27 13:55] LABS: BLOOD UREA NITROGEN 35 mg/dL (8-23); CREATININE 1.3 mg/dL (0.7-1.2); EST GLOMERULAR FILTRATION RATE 57 mL/min
[2018-10-27 13:56] LABS: TOTAL PROTEIN 7.1 g/dL (6.6-8.7)
[2018-10-27 13:58] LABS: GLUCOSE,RANDOM 98 mg/dL (74-109)
[2018-10-27 14:01] LABS: ALB/GLOB RATIO 1.4 (1.1-1.8); ALBUMIN 4.2 g/dL (4.0-5.0); ALKALINE PHOSPHATASE 125 U/L (40-129); ALT/SGPT 30 U/L (<41); AST/SGOT 35 U/L (10.0-50.0)
[2018-10-27] MEDS ORDERED: ONDANSETRON HCL IV 4 MG/2 ML VIAL IVP ONE (14:35)
[2018-10-27] MEDS ORDERED: ASPIRIN 81 MG CHEWABLE TABLET PO ONE (15:19)
--- NOTE | 2018-10-30 09:17 | CT SCAN REPORT ---
EXAM: CT OF THE HEAD WITHOUT CONTRAST HISTORY: DIZZINESS, SYNCOPE. TECHNIQUE: Standard CT imaging of the head was obtained without intravenous contrast. Coronal and sagittal reformations are provided. Comparison: Brain MRI 12/04/16. Hand dominance: Unknown. FINDINGS: There is a new small wedge shaped area of hypodensity in the right cerebellum inferiorly. Patchy hypodensity throughout the supratentorial white matter is nonspecific, but likely chronic small vessel ischemic changes. Mild sulcal prominence. The ventricles are normal in size. The basal cisterns are maintained. No significant mass effect or midline shift. No intracranial hemorrhage or extraaxial fluid collection is identified. The paranasal sinuses and mastoid air cells are clear. IMPRESSION: 1. NEW SMALL WEDGE SHAPED HYPODENSITY IN THE RIGHT CEREBELLUM INFERIORLY SUGGESTIVE OF A SMALL SUBACUTE INFARCT IN THE RIGHT POSTERIOR INFERIOR CEREBELLAR ARTERY DISTRIBUTION. 2. EXTENSIVE CHRONIC SMALL VESSEL ISCHEMIC CHANGES. 3. CRITICAL RESULTS DISCUSSED WITH THE PATIENT'S EMERGENCY ROOM PROVIDER AT THE TIME OF DICTATION. JOB NUMBER: [id number] MTDD
== END 2018-10-27 16:28 | disposition short-term general hospital (02) ==
LOC: ER 13:17
DX: R55 Syncope and collapse (principal); G46.4 Cerebellar stroke syndrome; R11.0 Nausea; I50.9 Heart failure, unspecified; E11.9 Type 2 diabetes mellitus without complications; I25.10 Atherosclerotic heart disease of native coronary artery without angina pectoris; I10 Essential (primary) hypertension; Z95.5 Presence of coronary angioplasty implant and graft; Z87.891 Personal history of nicotine dependence
CPT/HCPCS: 99285 ×2; 96374; 85025; 85730; 85610; 80053; 84484; 70450; 93005; 93010; J2405

== ENCOUNTER 2018-10-31 21:28 | Emergency (ER) | payer MEDICARE ==
--- NOTE | 2018-10-31 21:53 | Emergency Department Record ---
History of Present Illness - General Stated Complaint: lightheaded ,upset stomach,dizziness Time Seen by Provider: 10/31/18 21:29 Source: Patient Mode of Arrival: Wheelchair Limitations: No limitations - History of Present Illness Initial Comments: 77 yo male presents to ED for evaluation of the onset of "dizziness" and generalized weakness, reports that he is unable to walk as he will "fall over". Patient was seen 5 days ago for similar symptoms, transferred to [facility] where he was diagnosed with CVA. Patient reports denies the use of anticoagulation medications as he was bleeding into his urostomy. Patient does take ASA daily. Patient denies focal weakness or change in vision, does report headache symptoms that he did not have with his previous CVA. Patient reports history of atrial fibrillation s/p watchman procedure. MD Complaint: Dizziness Onset/Timin -: Minutes(s) Description: Difficulty walking, Lightheadedness, "Room spinning" History of Same: Yes History of Trauma: No Severity: Moderate Improves With: Nothing Worsens With: Nothing Associated Symptoms: Weakness - [place] Coma Scale Eye Response: (4) Open spontaneously Motor Response: (6) Obeys commands Verbal Response: (5) Oriented [place] Total: 15 - Related Data Allergies Allergy/AdvReac Type Severity Reaction Status Date / Time ioversol [IOVERSOL] Allergy Unknown GIVE Verified 11/05/17 10:52 PRE-TREATMENT hydromorphone HCl Allergy VOMITING Verified 11/05/17 10:52 [From Dilaudid] Iodinated Contrast- Oral and Allergy HIVES Verified 11/05/17 10:52 IV Dye [Iodinated Contrast Media - IV Dye] morphine Allergy ALTERED Verified 11/05/17 10:52 MENTAL STATUS Review of Systems Constitutional: Denies: Chills, Fever, Malaise, Night sweats Eyes: Denies: Eye discharge, Eye pain ENT: Denies: Congestion, Ear pain, Epistaxis Respiratory: Denies: Cough, Dyspnea Cardiovascular: Denies: Chest pain, Dyspnea on exertion Endocrine: Denies: Fatigue, Heat or cold intolerance Gastrointestinal: Denies: Abdominal pain, Nausea, Vomiting Genitourinary: Denies: Incontinence, Retention Musculoskeletal: Denies: Arthralgia, Back pain Skin: Denies: Bruising, Change in color Neurological: Reports: Abnormal gait, Headache, Vertigo, Weakness. Denies: Con fusion, Numbness, Seizure, Tingling, Tremors Psychiatric: Denies: Anxiety Hematological/Lymphatic: Denies: Anemia, Blood Clots Past Medical History - SOCIAL HISTORY Smoking Status: Former smoker Drug Use: None - RESPIRATORY Hx Respiratory Disorders: Yes Hx Pneumonia: Yes (hx 2012) - CARDIOVASCULAR Hx Cardio Disorders: Yes Hx CHF: Yes Hx Hypertension: Yes Hx Irregular Heartbeat: Yes (hx of afib 2011) Comment:: high cholesterol - NEURO Hx Neuro Disorders: No - GI Hx GI Disorders: Yes Hx Abdominal Pain: Yes (chronic unexplained abdominal) Hx Wt Loss/Wt Gain: Yes (down 20 lbs since 04/2014) Comment:: h pylori - Hx Genitourinary Disorders: Yes Hx Bladder Problem: Yes (bladder cancer, urostomy) Hx Prostate Problems: Yes (removed 2006) Hx UTI: Yes (hx) - ENDOCRINE Hx Endocrine Disorders: Yes Hx Diabetes: Yes - MUSCULOSKELETAL Hx Musculoskeletal Disorders: Yes - PSYCH Hx Psych Problems: Yes Hx Anxiety: Yes Hx Depression: Yes - HEMATOLOGY/ONCOLOGY Hx Hematology/Oncology Disorders: Yes Hx Cancer: Yes (bladder 2006) Hx Chemotherapy: No Hx Radiation Therapy: No Family Medical History Hx Cancer: Father *Cancer Comment: melanoma Hx Diabetes: Mother Hx Heart Disease: Father, Mother Hx HTN: Father, Mother Hx Stroke: Father, Mother Physical Exam - General General Appearance: Alert, Oriented x3, Cooperative, Mild distress Limitations: No limitations - Head Head exam: Atraumatic, Normocephalic, Normal inspection Head exam detail: negative: Abrasion, Contusion, Brasher's sign, General tenderness, Hematoma, Laceration - Eye Eye exam: Normal appearance. negative: Conjunctival injection, Periorbital swelling, Periorbital tenderness, Scleral icterus - ENT Ear exam: negative: Auricular hematoma, Auricular trauma Nasal Exam: negative: Active bleeding, Discharge, Dried blood, Foreign body Mouth exam: negative: Drooling, Laceration, Muffled voice, Tongue elevation - Neck Neck exam: Normal inspection. negative: Meningismus, Tenderness - Respiratory Respiratory exam: Normal lung sounds bilaterally. negative: Rales, Respiratory distress, Rhonchi, Stridor - Cardiovascular Cardiovascular Exam: Regular rate, Normal rhythm, Normal heart sounds - GI/Abdominal GI/Abdominal exam: Soft. negative: Rebound, Rigid, Tenderness - Rectal Rectal exam: Deferred - exam: Deferred - Extremities Extremities exam: Normal inspection. negative: Pedal edema, Tenderness - Back Back exam: Denies: CVA tenderness (R), CVA tenderness (L) - Neurological Neurological exam: Alert, CN II-XII intact, Oriented X3. negative: Motor sensory deficit - Psychiatric Psychiatric exam: Normal affect, Normal mood - Skin Skin exam: Other (Ecchymosis to the LUE on examination (likely from recent hospitalization)). negative: Abrasion Type of lesion: negative: abrasion Course Vital Signs 10/31/18 21:43 Temperature 97.8 F Pulse Rate [ 76 Left] Respiratory 16 Rate Blood Pressure 166/86 [Left] Pulse Ox 98 - Reevaluation(s) Reevaluation #1: 10/31/18 21:47 EKG: NSR 78 Normal axis, normal intervals No acute ST-T wave changes Reevaluation #2: 10/31/18 21:53 Patient was seen and examined, NIH stroke scale 0 on examination. Patient is going for STAT CT w/o contrast at this time, patient is NOT a tPA candidate based on his NIH stroke scale at this time. Reevaluation #3: 10/31/18 21:57 Recent records reviewed from 10/27/18, patient was transferred following recent right sided cerebellar infarct. Patient has been taking ASA as directed. Reevaluation #4: 10/31/18 22:20 Laboratory studies were reviewed and are grossly unremarkable for an acute process. CT Brain w/o contrast: Slight enlargement of previous identified wedge shaped infarct is slightly large than previous examination 10/27/18 Cannot exclude acute on subacute cerebellar infarct. [facility] 1-call was contacted for transfer. Reevaluation #5: 10/31/18 22:26 Case was discussed with Dr. Barkley, will accept patient for further evaluation of acute on subacute cerebellar infarct. Medical Decision Making - Lab Data Result diagrams: 10/31/18 21:52 10/31/18 21:52 Critical Care Time Critical Care Time: Yes Total Critical Care Time: 45 Critical Care Time: Diagnosis and treatment for acute CVA, consultation with Neurologist, facilitation of transfer to [facility] Neuro-care ICU, re-examination of the patient, CT/EKG/Laboratory study interpretation, reassessments, and updating of the patient and family on plan of care. Disposition Disposition: Transfer Clinical Impression: Cerebrovascular accident (CVA) due to occlusion of cerebellar artery Qualifiers: Laterality of affected vessel: right Qualified Code(s): I63.541 - Cerebral infarction due to unspecified occlusion or stenosis of right cerebellar artery Disposition: Acute Care Hospital Transfer Transfer To: [facility] Reason For Transfer: Acute on subacute CVA right cerebellum Accepting Physician: Rubia Time Discussed w/Accepting Physician: 22:24 Condition: (2) Stable Forms: Patient Portal Access Time of Disposition: 22:24 Quality - Quality Measures Quality Measures: N/A - Blood Pressure Screening Does Patient Have Any of the Following: Active Dx of HTN Blood Pressure Classification: Hypertensive Reading Systolic Measurement: 167 Diastolic Measurement: 77 Screening for High Blood Pressure: Patient Exclusion, Hx of HTN [G9744] Pre-Hypertensive Follow-up Interventions: Referral to alternative/primary care provider.
[2018-10-31 22:01] LABS: ABSOLUTE NEUTROPHIL COUNT 4.11; BASO % 0.6 % (0-6); EOS % 2.5 % (0-6); GRAN % 59.7 % (47-80); HEMATOCRIT 41.7 % (42.0-52.0); HEMOGLOBIN 13.7 gm/dl (14.0-18.0); LYMPH % 26.2 % (16-45); MEAN CORPUSCULAR HEMOGLOBIN 29.9 pg (27-33); MEAN CORPUSCULAR HGB CONC 32.9 g/dl (32-36); MEAN PLATELET VOLUME 10.2 fl (7.4-10.4); PLATELET COUNT 172 K/uL (130-400); RED BLOOD COUNT 4.58 M/uL (4.40-5.70); RED CELL DISTRIBUTION WIDTH 15.4 % (11.5-14.5); WHITE BLOOD COUNT W/O DIFF 6.9 K/uL (4.2-12.2)
[2018-10-31 22:10] LABS: BLOOD UREA NITROGEN 39 mg/dL (8-23); CREATININE 1.2 mg/dL (0.7-1.2); EST GLOMERULAR FILTRATION RATE > 60 mL/min
[2018-10-31 22:11] LABS: TOTAL PROTEIN 6.2 g/dL (6.6-8.7)
[2018-10-31 22:12] LABS: INR 1.1
[2018-10-31 22:13] LABS: GLUCOSE,RANDOM 158 mg/dL (74-109)
[2018-10-31 22:15] LABS: ALT/SGPT 47 U/L (<41)
[2018-10-31 22:16] LABS: ALB/GLOB RATIO 1.4 (1.1-1.8); ALBUMIN 3.6 g/dL (4.0-5.0); ALKALINE PHOSPHATASE 125 U/L (40-129); AST/SGOT 55 U/L (10.0-50.0)
--- NOTE | 2018-11-02 13:17 | CT SCAN REPORT ---
EXAM: CT OF THE BRAIN WITHOUT CONTRAST HISTORY: DIZZINESS AND NAUSEA. TECHNIQUE: Routine noncontrast CT of the brain was obtained. Comparison: CT of the brain without contrast dated 10/27/18. FINDINGS: The subarachnoid spaces remain mildly prominent consistent with atrophy. The ventricles are not enlarged. White matter lucencies are again noted scattered in each cerebral hemisphere, the pattern of which is stable. These are nonspecific, but likely areas of chronic small vessel ischemia. There is redemonstration of an area of hypodensity within the posteromedial inferior aspect of the right cerebellar hemisphere. This measures 1.4 x 1.8 x 2.0 cm. On the prior examination this measures 1.2 x 1.4 x 1.4 cm. This is consistent with a subacute infarct with possible mild acute extension. No other area of abnormally increased or decreased attenuation is noted throughout the brain substance. No new abnormal extraaxial fluid collection is seen. There is a tiny retention cyst within the right maxillary sinuses. The visualized paranasal sinuses and mastoid air cells are otherwise clear. The obits as visualized are unremarkable. IMPRESSION: 1. WEDGE SHAPED AREA OF HYPODENSITY WITHIN THE POSTEROMEDIAL INFERIOR ASPECT OF THE RIGHT CEREBELLAR HEMISPHERE. THIS AREA MEASURES SLIGHTLY LARGER THAN ON THE PRIOR EXAMINATION AND IS CONSISTENT WITH A SUBACUTE INFARCT WITH POSSIBLE ACUTE EXTENSION. NO ASSOCIATED HEMORRHAGE. 2. GENERALIZED ATROPHY. WHITE MATTER LUCENCIES IN EACH CEREBRAL HEMISPHERE REDEMONSTRATED CONSISTENT WITH CHRONIC MICROVASCULAR ISCHEMIA. [facility]BER: [id number] [facility]
== END 2018-10-31 22:52 | disposition short-term general hospital (02) ==
LOC: ER 21:28
DX: I63.541 Cerebral infarction due to unspecified occlusion or stenosis of right cerebellar artery (principal); R51 Headache; R42 Dizziness and giddiness; R11.0 Nausea; R53.1 Weakness; R26.2 Difficulty in walking, not elsewhere classified; R29.700 NIHSS score 0; I48.91 Unspecified atrial fibrillation; I10 Essential (primary) hypertension; I50.9 Heart failure, unspecified; E11.9 Type 2 diabetes mellitus without complications; Z79.4 Long term (current) use of insulin; Z87.891 Personal history of nicotine dependence; Z86.73 Personal history of transient ischemic attack (TIA), and cerebral infarction without residual deficits
CPT/HCPCS: 70450; 80053; 84484; 85025; 85610; 93005; 93010; 99291